=== PATIENT | female | born 2000 | race Caucasian/White ===

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

== ENCOUNTER 2022-02-04 10:01 | Emergency (ER) | payer OTHER ==
[~2022-02-04] VITALS: Ht 157.5 cm; Wt 59.4 kg
[~2022-02-04 10:01] MED LIST changes: +ACET-2166 PO
[2022-02-04 10:25] VITALS: BP 120/65
--- NOTE | 2022-02-04 10:32 | NUR ---
OUTSIDE ER LOBBY / BENCH
[2022-02-04] MEDS ORDERED: LIDOCAINE MPF 1% 5 ML ONE (10:39)
[2022-02-04] MEDS ORDERED: LIDOCAINE MPF 1% 10 MG/ML VIAL INJ ONE (10:45)
--- NOTE | 2022-02-04 10:59 | NUR ---
I&D PERFORED BY DR TIAN AT TRIAGE ROOM.
[2022-02-04] MEDS ORDERED: SULF-59 PO (11:14)
[2022-02-04] MEDS ORDERED: CEPH-588 PO (11:14)
--- NOTE | 2022-02-04 11:32 | NUR ---
Patient discharged with v/s stable. Written and verbal after care instructions given and explained. Patient alert, oriented and verbalized understanding of instructions. Ambulatory with steady gait. All questions addressed prior to discharge. ID band removed. Patient advised to follow up with PMD. Rx of Keflex, Bactrim given. Patient educated on indication of medication including possible reaction and side effects. Opportunity to ask questions provided and answered.
== END 2022-02-04 11:32 | disposition home or self-care (01) ==
LOC: MED 10:01
DX: L02.413 Cutaneous abscess of right upper limb (principal); L03.114 Cellulitis of left upper limb; F11.10 Opioid abuse, uncomplicated; Z79.899 Other long term (current) drug therapy
CPT/HCPCS: 10060; 99283; J2001

== ENCOUNTER 2022-02-04 19:56 | Emergency (ER) | payer OTHER ==
[~2022-02-04 19:56] MED LIST changes: +CEPH-588 PO; +SULF-59 PO
--- NOTE | 2022-02-04 20:21 | NUR ---
Called first time- no show in Lobby or outside.
--- NOTE | 2022-02-04 20:27 | NUR ---
Called second time- no show in Lobby or Outside.
--- NOTE | 2022-02-04 21:10 | NUR ---
PATIENT LEFT WITHOUT BEING SEEN BY DR. Fiore. NO FURTHER CARE PROVIDED FOR PATIENT.
== END 2022-02-04 21:10 | disposition left against medical advice (07) ==
LOC: MED 19:56
DX: Z53.21 Procedure and treatment not carried out due to patient leaving prior to being seen by health care provider (principal)

== ENCOUNTER 2022-02-05 | Emergency (ER) | payer OTHER ==
[~2022-02-05] VITALS: Ht 152.4 cm; Wt 59.0 kg
[2022-02-05 00:15] VITALS: BP 119/58
--- NOTE | 2022-02-05 00:18 | NUR ---
TO LOBBY A/W BED AMBULATORY
--- NOTE | 2022-02-05 02:42 | NUR ---
Patient taken to bed 4 via wheel chair.
[2022-02-05] MEDS ORDERED: cefTRIAXone 1,000 MG in LIDOCAINE MPF 1% 2.1 ML IM ONE (02:55)
[2022-02-05] MEDS ORDERED: SULFAMETH/TRIMETH DS 800/160MG 1 TAB PO ONE (02:55)
[2022-02-05] MEDS ORDERED: cefTRIAXone 1,000 MG VIAL ONE (03:17)
[2022-02-05] MEDS ORDERED: LIDOCAINE MPF 1% 5 ML ONE (03:18)
[2022-02-05] MEDS ORDERED: cephALEXin 500 MG CAP PO ONE (03:30)
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
== END 2022-02-05 03:36 | disposition home or self-care (01) ==
LOC: MED
DX: L03.114 Cellulitis of left upper limb (principal); L02.414 Cutaneous abscess of left upper limb; F19.10 Other psychoactive substance abuse, uncomplicated; Z79.899 Other long term (current) drug therapy
CPT/HCPCS: 99283; J0696; J2001

== ENCOUNTER 2022-02-23 20:04 | Emergency (ER) | payer OTHER ==
[~2022-02-23] VITALS: Ht 157.5 cm; Wt 67.1 kg
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
[2022-02-23 20:10] VITALS: BP_SYST 108; BP_SYST 116; BP_DIAS 65; BP_DIAS 84
--- NOTE | 2022-02-23 20:16 | NUR ---
Dr. Junior examining patient.
--- NOTE | 2022-02-23 20:41 | NUR ---
LENS GRINDER APPRENTICE AT BEDSIDE OBTAINING BLOOD SAMPLE
[2022-02-23 20:59] LABS: BASOPHILS % (AUTO) 0.5 % (0.0-2.0); EOSINOPHILS # (AUTO) 0.1 K/uL (0-0.4); HEMATOCRIT 37.1 % (36-48); HEMOGLOBIN 12.1 g/dL (12.0-16.0); LYMPHOCYTES # (AUTO) 2.7 K/uL (2.5-16.5); LYMPHOCYTES % (AUTO) 29.6 % (20.5-51.1); MEAN CORPUSCULAR HEMOGLOBIN 27 pg (27-31); MEAN CORPUSCULAR HGB CONC 33 g/dL (33-37); MEAN CORPUSCULAR VOLUME 81.6 fL (80-94); MONOCYTES # (AUTO) 0.7 K/uL (0.8-1.0); MONOCYTES % (AUTO) 8.2 % (1.7-9.3); NEUTROPHILS # (AUTO) 5.4 K/uL (1.8-7.7); NEUTROPHILS % (AUTO) 60.7 % (42.2-75.2); PLATELET COUNT (AUTO) 272 K/uL (140-450); RED BLOOD CELL COUNT(AUTO) 4.55 MIL/uL (4.20-5.40); WHITE BLOOD COUNT (AUTO) 8.9 K/uL (4.5-11.0)
--- NOTE | 2022-02-23 21:01 | NUR ---
pt provided with markus martinez. per dr.sin lundberg to give.
[2022-02-23] MEDS ORDERED: NACL 0.9% 1,000 ML IV ONE (21:10)
[2022-02-23 21:15] LABS: ALBUMIN 3.6 g/dL (3.4-5.0); ANION GAP 11.9 (8-16); ASPARTATE AMINOTRANSFERASE 34 U/L (15-37); CARBON DIOXIDE 28.6 mmol/L (21-32); CHLORIDE 107 mmol/L (98-107); CREATININE 0.8 mg/dL (0.6-1.3); GFR ARICAN-AMERICAN 118 mL/min (>90); GLUCOSE 81 mg/dL (74-106); POTASSIUM 3.5 mmol/L (3.5-5.1); SODIUM SERUM 144 mmol/L (136-145); TOTAL BILIRUBIN 0.9 mg/dL (0.0-1.0); UREA NITROGEN, BLOOD 16 mg/dL (7-18)
[2022-02-23 21:19] LABS: ACETAMINOPHEN < 0.5 ug/ml (10-30); SALICYLATE < 2.8 mg/dL (2.8-20.0)
--- NOTE | 2022-02-23 21:53 | NUR ---
XRAY AT BEDSIDE
[2022-02-24] MEDS ORDERED: NALO4SPR NS (00:04)
[2022-02-24 00:35] VITALS: BP 110/52
--- NOTE | 2022-02-24 00:35 | NUR ---
Patient discharged with v/s stable. Written and verbal after care instructions given and explained. Patient alert, oriented and verbalized understanding of instructions. Ambulatory with steady gait. All questions addressed prior to discharge. ID band removed. Patient advised to follow up with PMD. Rx of narcan given. Patient educated on indication of medication including possible reaction and side effects. Opportunity to ask questions provided and answered.
== END 2022-02-24 00:35 | disposition home or self-care (01) ==
LOC: MED 20:04
DX: T40.2X1A Poisoning by other opioids, accidental (unintentional), initial encounter (principal); F15.90 Other stimulant use, unspecified, uncomplicated; Y92.89 Other specified places as the place of occurrence of the external cause
CPT/HCPCS: 36415; 71045; 80053; 84702; 85025; 96360; 99284; G0480; G0482; J7030

== ENCOUNTER 2022-04-16 19:12 | Emergency (ER) | payer OTHER ==
[~2022-04-16] VITALS: Ht 160 cm; Wt 56.7 kg
[~2022-04-16 19:12] MED LIST changes: +NALO4SPR NS
[2022-04-16 19:16] VITALS: BP 102/57
--- NOTE | 2022-04-16 19:20 | NUR ---
PT KWASI MAURO TO CHAIR C
--- NOTE | 2022-04-16 19:20 | NUR ---
PT TO CHAIR C
--- NOTE | 2022-04-16 19:31 | NUR ---
PT WISHES TO WAIT IN THE LOBBY.
--- NOTE | 2022-04-16 19:32 | NUR ---
PT RETURNED TO CHAIR C
--- NOTE | 2022-04-16 20:36 | NUR ---
DR WATTS EXAMINING PT
[2022-04-16] MEDS ORDERED: ONDANSETRON 4 MG ODT PO ONE (20:40)
--- NOTE | 2022-04-16 21:46 | NUR ---
PT PROVIDED WITH FOOD AND DRINK PER REQUEST
[2022-04-16 22:28] LABS: BARBITURATE, URINE NEGATIVE ng/ml (NEG <=200); BENZODIAZEPINE, URINE NEGATIVE ng/mL (NEG <=200); CANNABINOID, URINE NEGATIVE ng/mL (NEG <=50); COCAINE, URINE NEGATIVE ng/mL (NEG <=300); OPIATE, URINE NEGATIVE ng/mL (NEG <=2000); PHENCYCLIDINE SCREEN,URINE NEGATIVE ng/mL (NEG <=25)
--- NOTE | 2022-04-16 23:00 | NUR ---
PT IS AWAKE AND ALERT, AMBULATORY. PT CALLED A FRIEND.
[2022-04-16 23:25] VITALS: BP 102/57
--- NOTE | 2022-04-16 23:25 | NUR ---
Patient discharged with v/s stable. Written and verbal after care instructions given and explained. Patient verbalized understanding. Ambulatory with steady gait. All questions addressed prior to discharge. Advised to follow up with PMD.
== END 2022-04-16 23:25 | disposition home or self-care (01) ==
LOC: MED 19:12
DX: F10.129 Alcohol abuse with intoxication, unspecified (principal); F15.90 Other stimulant use, unspecified, uncomplicated; Z79.899 Other long term (current) drug therapy
CPT/HCPCS: 36415; 80305; 81025; 99283; G0482

== ENCOUNTER 2022-07-30 08:20 | Emergency (ER) | payer OTHER ==
[~2022-07-30] VITALS: Ht 157.5 cm; Wt 60.8 kg
[~2022-07-30 08:20] MED LIST changes: +TRAM-748 PO; -TRAM50TA1 PO
[2022-07-30 08:34] VITALS: BP 102/67
--- NOTE | 2022-07-30 08:47 | NUR ---
PT AMBULATED TO ER BED 3
[2022-07-30] MEDS ORDERED: cefTRIAXone 250 MG in LIDOCAINE MPF 1% 0.9 ML IM ONE (09:05)
[2022-07-30] MEDS ORDERED: DOXYCYCLINE 100 MG CAP PO SCH (09:05)
[2022-07-30 09:10] LABS: BASOPHILS % (AUTO) 0.4 % (0.0-2.0); EOSINOPHILS # (AUTO) 0.2 K/uL (0-0.4); EOSINOPHILS % (AUTO) 2.7 % (0.0-4.0); HEMATOCRIT 36.1 % (36-48); HEMOGLOBIN 12.4 g/dL (12.0-16.0); LYMPHOCYTES # (AUTO) 2.2 K/uL (2.5-16.5); MEAN CORPUSCULAR HEMOGLOBIN 28 pg (27-31); MEAN CORPUSCULAR HGB CONC 34 g/dL (33-37); MONOCYTES # (AUTO) 0.7 K/uL (0.8-1.0); MONOCYTES % (AUTO) 8.2 % (1.7-9.3); NEUTROPHILS % (AUTO) 61.7 % (42.2-75.2); PLATELET COUNT (AUTO) 204 K/uL (140-450); RED BLOOD CELL COUNT(AUTO) 4.51 MIL/uL (4.20-5.40); RED CELL DISTRIBUTION WIDTH 14.2 % (11.6-13.7)
[2022-07-30 09:34] LABS: ALBUMIN 3.6 g/dL (3.4-5.0); ANION GAP 8.8 (8-16); CARBON DIOXIDE 31.1 mmol/L (21-32); CREATININE 0.9 mg/dL (0.6-1.3); POTASSIUM 3.9 mmol/L (3.5-5.1); TOTAL BILIRUBIN 0.6 mg/dL (0.0-1.0)
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
[2022-07-30] MEDS ORDERED: LIDOCAINE 1% 500 MG/ 50 ML VIAL INJ ONE (10:15)
[2022-07-30] MEDS ORDERED: LIDOCAINE MPF 1% 5 ML ONE ×2 (10:16→10:50)
[2022-07-30] MEDS ORDERED: cefTRIAXone 250 MG VIAL ONE (10:48)
[2022-07-30 10:53] LABS: APPEARANCE,URINE CLEAR (CLEAR); BILIRUBIN,URINE NEGATIVE (NEGATIVE); BLOOD, URINE NEGATIVE (NEGATIVE); COLOR,URINE YELLOW (YELLOW); LEUKOCYTE ESTERASE ,URINE NEGATIVE (NEGATIVE); NITRITE, URINE POSITIVE (NEGATIVE); UGLUCOSE NEGATIVE (NEGATIVE)
[2022-07-30 11:09] LABS: OTHER CASTS, URINE None Seen /LPF (None Seen); RBC,URINE 0-5 /HPF (0-5); WBC,URINE 0-5 /HPF (0-5)
[2022-07-30] MEDS ORDERED: DOXY-690 PO (11:32)
[2022-07-30] MEDS ORDERED: METR-435 PO (11:35)
--- NOTE | 2022-07-30 11:48 | NUR ---
Patient discharged with v/s stable. Written and verbal after care instructions given and explained. Patient alert, oriented and verbalized understanding of instructions. Ambulatory with steady gait. All questions addressed prior to discharge. ID band removed. Patient advised to follow up with PMD. Rx of Vibramycin and Metronidazole given. Patient educated on indication of medication including possible reaction and side effects. Opportunity to ask questions provided and answered.
[2022-07-30 11:49] VITALS: BP 101/46
[2022-07-30] MEDS ORDERED: NALO4SPR NS (11:50)
== END 2022-07-30 11:48 | disposition home or self-care (01) ==
LOC: MED 08:20
DX: L02.01 Cutaneous abscess of face (principal); F19.10 Other psychoactive substance abuse, uncomplicated; F17.200 Nicotine dependence, unspecified, uncomplicated; Z71.6 Tobacco abuse counseling
CPT/HCPCS: 10060; 36415; 80053; 81001; 81025; 85025; 87086; 87491; 96372; 99284; J0696; J2001

== ENCOUNTER 2022-08-13 08:18 | Emergency (ER) | payer OTHER ==
[~2022-08-13] VITALS: Ht 157.5 cm; Wt 65.8 kg
[~2022-08-13 08:18] MED LIST changes: +DOXY-690 PO; +METR-435 PO
[2022-08-13 08:33] VITALS: BP 114/53
--- NOTE | 2022-08-13 09:08 | NUR ---
22F presents to ED with c/o multiple abscess to right side of face x a few weeks. Pt reports pressure like sensation to right side of face, denies pain. Pt reports illicit use of fentanyl, and crystal meth via IV. Pt denies fevers, chills or n/v/d. Slight swelling noted to right side of face upon assessment.
[2022-08-13] MEDS ORDERED: LIDOCAINE 2% 100 MG/5 ML SYR IVP ONE (10:16)
[2022-08-13] MEDS ORDERED: LIDOCAINE 2% 1000 MG/50 ML VIAL INJ ONE (10:18)
--- NOTE | 2022-08-13 10:36 | NUR ---
Dr. Nam at bedside of I&D procedure.
[2022-08-13] MEDS ORDERED: SULF-59 PO (10:48)
[2022-08-13] MEDS: LIDOCAINE MPF 2% 100 MG/5 ML VIAL INJ ONE (11:05)
[2022-08-13 11:10] VITALS: BP 121/58
--- NOTE | 2022-08-13 11:10 | NUR ---
Patient discharged with v/s stable. Written and verbal after care instructions skin abscess and substance abuse disorder given and explained. Resources given for substance abuse. Patient alert, oriented and verbalized understanding of instructions. Ambulatory with steady gait. All questions addressed prior to discharge. ID band removed. Patient advised to follow up with PMD. Rx of Bactrim given. Patient educated on indication of medication including possible reaction and side effects. Opportunity to ask questions provided and answered.
== END 2022-08-13 11:10 | disposition home or self-care (01) ==
LOC: MED 08:18
DX: L02.01 Cutaneous abscess of face (principal); F15.10 Other stimulant abuse, uncomplicated; Z79.899 Other long term (current) drug therapy
CPT/HCPCS: 99283; J2001

== ENCOUNTER 2022-08-13 21:48 | Emergency (ER) | payer OTHER ==
[~2022-08-13] VITALS: Ht 157.5 cm; Wt 64.0 kg
[2022-08-13 22:21] VITALS: BP 123/69
--- NOTE | 2022-08-14 00:10 | NUR ---
SEEN AND EXAMINED BY SUKH
[2022-08-14 00:25] VITALS: BP 123/69
[2022-08-14] MEDS ORDERED: SULFAMETH/TRIMETH DS 800/160MG 1 TAB PO ONE (00:25)
[2022-08-14] MEDS ORDERED: IBUPROFEN 600 MG TAB PO ONE (00:25)
== END 2022-08-14 01:25 | disposition home or self-care (01) ==
LOC: MED 21:48
DX: L03.211 Cellulitis of face (principal); Z79.899 Other long term (current) drug therapy
CPT/HCPCS: 99284

== ENCOUNTER 2022-09-28 11:29 | Emergency (ER) | payer OTHER ==
[~2022-09-28] VITALS: Ht 157.5 cm; Wt 62.6 kg
[2022-09-28 11:35] VITALS: BP 116/61
--- NOTE | 2022-09-28 12:54 | NUR ---
ATTEMPTED TO BRING PT BACK, NOT FOUND IN LOBBY/OUTSIDE
--- NOTE | 2022-09-28 13:05 | NUR ---
2ND ATTEMPT TO BRING PT BACK, NOT FOUND IN LOBBY/OUTSIDE.
--- NOTE | 2022-09-28 13:20 | NUR ---
PATIENT LEFT WITHOUT BEING SEEN BY DR. ANDUJAR/ DAGO GONZALEZ. NO FURTHER CARE PROVIDED FOR PATIENT.
[2022-09-28] MEDS ORDERED: BACTO TP (15:30)
[2022-09-28] MEDS ORDERED: DOXY-690 PO (15:30)
[2022-09-28] MEDS ORDERED: METR-435 PO (15:30)
[2022-09-28] MEDS ORDERED: MICO45CR20 VG (16:11)
== END 2022-09-28 13:20 | disposition left against medical advice (07) ==
LOC: MED 11:29
DX: L02.01 Cutaneous abscess of face (principal); Z53.21 Procedure and treatment not carried out due to patient leaving prior to being seen by health care provider
CPT/HCPCS: 99281

== ENCOUNTER 2022-09-28 14:16 | Emergency (ER) | payer OTHER ==
[~2022-09-28] VITALS: Ht 154.9 cm; Wt 61.2 kg
[2022-09-28 14:24] VITALS: BP 111/82
[2022-09-28] MEDS ORDERED: cefTRIAXone 1,000 MG in LIDOCAINE MPF 1% 2.1 ML IM ONE (14:35)
--- NOTE | 2022-09-28 14:44 | NUR ---
ATTEMPTED TO BRING PT BACK, NOT FOUND IN LOBBY/OUTSIDE
--- NOTE | 2022-09-28 15:03 | NUR ---
PT AMB TO BED 9
--- NOTE | 2022-09-28 15:12 | NUR ---
ASSUMED PATIENT CARE, NURSING ASSESSMENT COMPLETED.
[2022-09-28] MEDS ORDERED: LIDOCAINE MPF 1% 5 ML ONE (15:19)
[2022-09-28] MEDS ORDERED: cefTRIAXone 1,000 MG VIAL ONE (15:19)
[2022-09-28] MEDS ORDERED: BACTO TP (15:30)
[2022-09-28] MEDS ORDERED: METR-435 PO (15:30)
[2022-09-28] MEDS ORDERED: DOXY-690 PO (15:30)
[2022-09-28 15:38] LABS: APPEARANCE,URINE CLEAR (CLEAR); BILIRUBIN,URINE NEGATIVE (NEGATIVE); BLOOD, URINE NEGATIVE (NEGATIVE); COLOR,URINE YELLOW (YELLOW); LEUKOCYTE ESTERASE ,URINE NEGATIVE (NEGATIVE); NITRITE, URINE POSITIVE (NEGATIVE); UGLUCOSE NEGATIVE (NEGATIVE)
[2022-09-28 15:59] VITALS: BP 121/67
[2022-09-28 15:59] LABS: RBC,URINE NONE SEEN /HPF (0-5); WBC,URINE 0-5 /HPF (0-5)
[2022-09-28 16:00] LABS: TRICHOMONAS,URINE None Seen /HPF (None Seen); YEAST,URINE Moderate /HPF (None Seen)
--- NOTE | 2022-09-28 16:03 | NUR ---
Patient discharged with v/s stable. Written and verbal after care instructions given and explained. Patient alert, oriented and verbalized understanding of instructions. Ambulatory with steady gait. All questions addressed prior to discharge. ID band removed. Patient advised to follow up with PMD. Rx of MUPIROCIN, VIBRAMYCIN, METRONIDAZOLE given. Patient educated on indication of medication including possible reaction and side effects. Opportunity to ask questions provided and answered.
--- NOTE | 2022-09-28 16:07 | NUR ---
ALCOHOL AND DRUG CESSATION RESOURCES PROVIDED TO PATIENT.
[2022-09-28] MEDS ORDERED: MICO45CR20 VG (16:11)
== END 2022-09-28 16:03 | disposition home or self-care (01) ==
LOC: MED 14:16
DX: N76.0 Acute vaginitis (principal); B96.89 Other specified bacterial agents as the cause of diseases classified elsewhere; B37.31 Acute candidiasis of vulva and vagina; L02.01 Cutaneous abscess of face; Z79.899 Other long term (current) drug therapy
CPT/HCPCS: 81001; 81025; 86592; 86703; 87086; 87491; 96372; 99283; J0696; J2001

== ENCOUNTER 2022-10-16 09:02 | Emergency (ER) | payer OTHER ==
[~2022-10-16] VITALS: Ht 157.5 cm; Wt 63.5 kg
[~2022-10-16 09:02] MED LIST changes: +BACTO TP; +MICO45CR20 VG
[2022-10-16 09:09] VITALS: BP 116/71
[2022-10-16] MEDS ORDERED: PENICILLIN G BENZATHINE L-A 1.2 MU/2 ML SYR IM ONE (09:50)
[2022-10-16] MEDS ORDERED: AMOX1TAB8 PO (11:26)
--- NOTE | 2022-10-16 11:32 | NUR ---
DRUG RESOURCE PACKET PROVIDED BY ANILA MARTINEZ
[2022-10-16 11:33] VITALS: BP 116/71
[2022-10-17 09:07] LABS: HEPATITIS A ANTIBODY IGM Negative (Negative); HEPATITIS B CORE AB TOTAL Negative (Negative); HEPATITIS B SURFACE ANTIBODY Non Reactive (.); HEPATITIS B SURFACE ANTIGEN Negative (Negative)
== END 2022-10-16 11:34 | disposition home or self-care (01) ==
LOC: MED 09:02
DX: K04.7 Periapical abscess without sinus (principal); A53.9 Syphilis, unspecified; Z79.899 Other long term (current) drug therapy
CPT/HCPCS: 36415; 86704; 86706; 86708; 86709; 86803; 87340; 96372; 99283; J0561

== ENCOUNTER 2022-11-10 03:20 | Emergency (ER) | payer OTHER ==
[~2022-11-10] VITALS: Ht 157.5 cm; Wt 62.6 kg
[~2022-11-10 03:20] MED LIST changes: +AMOX1TAB8 PO
[2022-11-10 03:40] VITALS: BP 124/70
--- NOTE | 2022-11-10 03:40 | NUR ---
PT WENT TO BED 3
--- NOTE | 2022-11-10 03:50 | NUR ---
c/o left upper dental pain and abscess x 1 month. per pt, c/o sore throat. denies pmhx, denies allergies.
--- NOTE | 2022-11-10 04:03 | NUR ---
DR REID AT BEDSIDE
[2022-11-10] MEDS ORDERED: KETOROLAC 60 MG/2 ML VIAL IM ONE (04:10)
[2022-11-10] MEDS ORDERED: AMOX-1230 PO (04:17)
[2022-11-10] MEDS ORDERED: IBUP-2213 PO (04:17)
[2022-11-10 04:47] VITALS: BP 124/70
--- NOTE | 2022-11-10 04:50 | NUR ---
pt refused the med. notified.
--- NOTE | 2022-11-10 05:06 | NUR ---
Patient discharged with v/s stable. Written and verbal after care instructions given and explained. Patient alert, oriented and verbalized understanding of instructions. Ambulatory with steady gait. All questions addressed prior to discharge. ID band removed. Patient advised to follow up with PMD. Rx of amoxillin and tylenol given. Patient educated on indication of medication including possible reaction and side effects. Opportunity to ask questions provided and answered.
== END 2022-11-10 05:06 | disposition home or self-care (01) ==
LOC: MED 03:20
DX: K04.7 Periapical abscess without sinus (principal); Z79.899 Other long term (current) drug therapy
CPT/HCPCS: 99283; J1885

== ENCOUNTER 2023-01-19 13:03 | Emergency (ER) | payer MEDICAID, OTHER ==
[~2023-01-19] VITALS: Ht 162.6 cm; Wt 81.6 kg
[~2023-01-19 13:03] MED LIST changes: +AMOX-1230 PO; +IBUP-2213 PO
[2023-01-19 13:30] VITALS: BP 149/80; PULSE 90; RESP 18; TEMP 98.1; O2SAT 98
[2023-01-19] MEDS ORDERED: LIDOCAINE MPF 1% 10 MG/ML VIAL INJ ONE (14:00)
--- NOTE | 2023-01-19 15:01 | NUR ---
22 yo/m w c/o R pointer finger abscess x3 days s/p cutting self w glass, site is swollen, purple/yellow fluid filled 10/10 pressure pain. no fevers, chills, n/v/d. pmh: denies allergies: denies
--- NOTE | 2023-01-19 15:06 | NUR ---
pt reports she a MD 3days ago and received tdap.
--- NOTE | 2023-01-19 15:34 | NUR ---
lissette ortiz [facility] for pt care
[2023-01-19] MEDS ORDERED: NALO4SPR NS (15:41)
[2023-01-19 16:08] VITALS: BP 131/84; PULSE 85; RESP 18; TEMP 98.1; O2SAT 99
== END 2023-01-19 16:08 | disposition home or self-care (01) ==
LOC: MED 13:03
DX: L02.511 Cutaneous abscess of right hand (principal); F11.90 Opioid use, unspecified, uncomplicated; Z79.899 Other long term (current) drug therapy
CPT/HCPCS: 26010; 73140; 99283; J2001

== ENCOUNTER 2023-02-04 00:55 | Emergency (ER) | payer MEDICAID ==
[~2023-02-04] VITALS: Ht 157.5 cm; Wt 54.4 kg
[2023-02-04 01:07] VITALS: BP 101/66; PULSE 108; RESP 16; TEMP 98.1; O2SAT 100
--- NOTE | 2023-02-04 01:13 | NUR ---
TO LOBBY FOLLOWING TRIAGE
--- NOTE | 2023-02-04 02:40 | NUR ---
CALLED PT TO BRING TO BED. NO ANSWER. PT LWBS
== END 2023-02-04 02:40 | disposition left against medical advice (07) ==
LOC: MED 00:55
DX: M79.644 Pain in right finger(s) (principal); Z53.21 Procedure and treatment not carried out due to patient leaving prior to being seen by health care provider
CPT/HCPCS: 99281

== ENCOUNTER 2023-03-04 19:56 | Emergency (ER) | payer MEDICAID ==
[~2023-03-04] VITALS: Ht 157.5 cm; Wt 54.4 kg
[2023-03-04 20:37] VITALS: BP 116/66; PULSE 83; RESP 16; TEMP 96.8; O2SAT 100
== END 2023-03-04 22:40 | disposition left against medical advice (07) ==
LOC: MED 19:56
DX: O21.8 Other vomiting complicating pregnancy (principal); O99.350 Diseases of the nervous system complicating pregnancy, unspecified trimester; R51.9 Headache, unspecified; Z53.21 Procedure and treatment not carried out due to patient leaving prior to being seen by health care provider; Z3A.00 Weeks of gestation of pregnancy not specified
CPT/HCPCS: 81025; 99281

== ENCOUNTER 2023-03-05 09:40 | Emergency (ER) | payer MEDICAID ==
[~2023-03-05] VITALS: Ht 157.5 cm; Wt 68.0 kg
[2023-03-05 10:00] VITALS: BP 108/65; PULSE 85; RESP 20; TEMP 98.1; O2SAT 100
[2023-03-05 13:36] LABS: APPEARANCE,URINE CLEAR (CLEAR); BILIRUBIN,URINE NEGATIVE (NEGATIVE); BLOOD, URINE NEGATIVE (NEGATIVE); COLOR,URINE YELLOW (YELLOW); LEUKOCYTE ESTERASE ,URINE NEGATIVE (NEGATIVE); NITRITE, URINE NEGATIVE (NEGATIVE); PROTEIN,URINE NEGATIVE (NEGATIVE); UGLUCOSE NEGATIVE (NEGATIVE); UROBILINOGEN,URINE 0.2 EU/dL (0.2 - 1)
== END 2023-03-05 11:37 | disposition left against medical advice (07) ==
LOC: MED 09:40
DX: R11.2 Nausea with vomiting, unspecified (principal); N89.8 Other specified noninflammatory disorders of vagina; R42 Dizziness and giddiness; Z53.21 Procedure and treatment not carried out due to patient leaving prior to being seen by health care provider
CPT/HCPCS: 81003; 81025; 87491; 99281; 99283

== ENCOUNTER 2023-04-06 08:55 | Emergency (ER) | payer MEDICAID ==
[~2023-04-06] VITALS: Ht 157.5 cm; Wt 68.0 kg
[2023-04-06 09:03] VITALS: BP 83/65; PULSE 85; RESP 18; TEMP 97.4; O2SAT 100
[2023-04-06 13:49] VITALS: BP 83/65; PULSE 85; RESP 18; TEMP 97.4; O2SAT 100
[2023-04-07] MEDS ORDERED: CEPH-588 PO (01:12)
[2023-04-07] MEDS ORDERED: ACET-10509 PO (01:12)
== END 2023-04-06 13:49 | disposition left against medical advice (07) ==
LOC: MED 08:55
DX: H02.846 Edema of left eye, unspecified eyelid (principal); Z53.21 Procedure and treatment not carried out due to patient leaving prior to being seen by health care provider
CPT/HCPCS: 99281

== ENCOUNTER 2023-04-06 22:26 | Emergency (ER) | payer MEDICAID ==
[~2023-04-06] VITALS: Ht 157.5 cm; Wt 63.5 kg
[2023-04-06 23:10] VITALS: BP 132/70; PULSE 96; RESP 16; TEMP 97.9; O2SAT 99
[2023-04-07] MEDS ORDERED: CEPH-588 PO (01:12)
[2023-04-07] MEDS ORDERED: ACET-10509 PO (01:12)
== END 2023-04-07 01:20 | disposition home or self-care (01) ==
LOC: MED 22:26
DX: J34.0 Abscess, furuncle and carbuncle of nose (principal); Z79.899 Other long term (current) drug therapy
CPT/HCPCS: 81025; 99283

== ENCOUNTER 2023-05-15 19:40 | Emergency (ER) | payer MEDICAID ==
[~2023-05-15] VITALS: Ht 157.5 cm; Wt 54.4 kg
[~2023-05-15 19:40] MED LIST changes: +ACET-10509 PO
[2023-05-15 20:00] VITALS: BP 102/54; PULSE 82; RESP 17; TEMP 97.8; O2SAT 98
[2023-05-15 20:34] LABS: APPEARANCE,URINE CLEAR (CLEAR); BILIRUBIN,URINE NEGATIVE (NEGATIVE); BLOOD, URINE NEGATIVE (NEGATIVE); COLOR,URINE YELLOW (YELLOW); LEUKOCYTE ESTERASE ,URINE NEGATIVE (NEGATIVE); NITRITE, URINE NEGATIVE (NEGATIVE); PROTEIN,URINE NEGATIVE (NEGATIVE); UGLUCOSE NEGATIVE (NEGATIVE); UROBILINOGEN,URINE 0.2 EU/dL (0.2 - 1)
[2023-05-15 21:02] LABS: ALBUMIN 3.1 g/dL (3.4-5.0); ANION GAP 9.6 (8-16); CALCIUM 8.3 mg/dL (8.5-10.1); CREATININE 0.7 mg/dL (0.6-1.3); POTASSIUM 3.6 mmol/L (3.5-5.1); TOTAL BILIRUBIN 0.5 mg/dL (0.0-1.0); TOTAL PROTEIN, SERUM 6.9 g/dL (6.4-8.2)
[2023-05-15 21:59] LABS: BASOPHILS % (AUTO) 0.2 % (0.0-2.0); EOSINOPHILS # (AUTO) 0.1 K/uL (0-0.4); EOSINOPHILS % (AUTO) 1.8 % (0.0-4.0); HEMATOCRIT 34.9 % (36-48); HEMOGLOBIN 11.7 g/dL (12.0-16.0); LYMPHOCYTES # (AUTO) 2.3 K/uL (2.5-16.5); LYMPHOCYTES % (AUTO) 28.1 % (20.5-51.1); MEAN CORPUSCULAR HEMOGLOBIN 27 pg (27-31); MEAN CORPUSCULAR HGB CONC 33 g/dL (33-37); MEAN CORPUSCULAR VOLUME 81.3 fL (80-94); MONOCYTES # (AUTO) 0.5 K/uL (0.8-1.0); MONOCYTES % (AUTO) 6.7 % (1.7-9.3); NEUTROPHILS # (AUTO) 5.1 K/uL (1.8-7.7); NEUTROPHILS % (AUTO) 63.2 % (42.2-75.2); PLATELET COUNT (AUTO) 234 K/uL (140-450); RED CELL DISTRIBUTION WIDTH 15.6 % (11.6-13.7)
== END 2023-05-15 22:40 | disposition left against medical advice (07) ==
LOC: MED 19:40
DX: Z34.92 Encounter for supervision of normal pregnancy, unspecified, second trimester (principal); Z36.89 Encounter for other specified antenatal screening; Z53.21 Procedure and treatment not carried out due to patient leaving prior to being seen by health care provider
CPT/HCPCS: 36415; 80053; 81003; 81025; 84702; 85025; 86886; 86900; 86901; 87491; 99281

== ENCOUNTER 2023-06-19 16:55 | Observation (INO) | payer MEDICAID ==
[~2023-06-19] VITALS: Ht 157.5 cm; Wt 68.0 kg
[2023-06-19 17:15] VITALS: BP 114/61; PULSE 80; RESP 19; TEMP 98
[2023-06-19 18:56] LABS: APPEARANCE,URINE CLEAR (CLEAR); BILIRUBIN,URINE NEGATIVE (NEGATIVE); BLOOD, URINE NEGATIVE (NEGATIVE); COLOR,URINE YELLOW (YELLOW); LEUKOCYTE ESTERASE ,URINE NEGATIVE (NEGATIVE); NITRITE, URINE POSITIVE (NEGATIVE); PROTEIN,URINE NEGATIVE (NEGATIVE); UGLUCOSE NEGATIVE (NEGATIVE)
[2023-06-19 19:10] LABS: AMPHETAMINE, URINE POSITIVE ng/ml (NEG <=1000); BARBITURATE, URINE NEGATIVE ng/ml (NEG <=200); BENZODIAZEPINE, URINE NEGATIVE ng/mL (NEG <=200); CANNABINOID, URINE NEGATIVE ng/mL (NEG <=50); COCAINE, URINE POSITIVE ng/mL (NEG <=300); OPIATE, URINE POSITIVE ng/mL (NEG <=2000); PHENCYCLIDINE SCREEN,URINE NEGATIVE ng/mL (NEG <=25)
[2023-06-19 19:12] LABS: BACTERIA,URINE FEW /HPF (None Seen); RBC,URINE 0-5 /HPF (0-5)
[2023-06-19 19:13] LABS: SQUAMOUS EPITHELIAL CELL,UR 4-10 (MOD) /LPF (0-3 (FEW))
[2023-06-19] MEDS ORDERED: PENICILLIN G BENZATHINE L-A 1.2 MU/2 ML SYR IM ONE (20:00)
== END 2023-06-19 21:49 | disposition home or self-care (01) ==
LOC: MLD 16:55
PROVIDERS: ADMIT Obstetrics & Gynecology; ATTEND Obstetrics & Gynecology
DX: O36.8120 Decreased fetal movements, second trimester, not applicable or unspecified (principal); Z3A.22 22 weeks gestation of pregnancy
CPT/HCPCS: 76805; 80305; 81001; 87086; 96372; G0378; G0379; J0561; Q0092

== ENCOUNTER 2023-09-28 11:05 | Emergency (ER) | payer MEDICAID ==
[~2023-09-28] VITALS: Ht 157.5 cm; Wt 73.9 kg
[2023-09-28 11:38] VITALS: BP 127/74; PULSE 78; RESP 18; TEMP 97.7; O2SAT 100
[2023-09-28 12:31] LABS: BILIRUBIN,URINE 1+ (NEGATIVE); BLOOD, URINE NEGATIVE (NEGATIVE); COLOR,URINE YELLOW (YELLOW); LEUKOCYTE ESTERASE ,URINE 2+ (NEGATIVE); NITRITE, URINE POSITIVE (NEGATIVE); PROTEIN,URINE TRACE (NEGATIVE); UGLUCOSE NEGATIVE (NEGATIVE)
[2023-09-28 12:32] LABS: APPEARANCE,URINE HAZY (CLEAR)
[2023-09-28 12:37] LABS: ICTOTEST NEGATIVE (NEGATIVE)
[2023-09-28 12:38] LABS: BACTERIA,URINE 1+ /HPF (None Seen); RBC,URINE 0-5 /HPF (0-5); WBC,URINE TOO MANY TO COUNT /HPF (0-5)
[2023-09-28 12:39] LABS: SQUAMOUS EPITHELIAL CELL,UR 0-3 (FEW) /LPF (0-3 (FEW))
[2023-09-28] MEDS ORDERED: CEPH-588 PO (13:00)
[2023-09-28] MEDS ORDERED: ACET-10509 PO (13:00)
[2023-09-28] MEDS: PENICILLIN G BENZATHINE L-A 1.2 MU/2 ML SYR IM ONE (13:28)
[2023-09-28 13:50] VITALS: BP 127/74; PULSE 74; RESP 19; TEMP 97.7; O2SAT 100
[2023-09-28 14:36] LABS: HIV RAPID SCREEN NON-REACTIVE (NON REACTIV)
[2023-09-29 16:03] LABS: RAPID PLASMA REAGIN WEAKLY REACTIVE (Non Reactiv)
[2023-09-30] MEDS ORDERED: NITR100C7 PO (11:44)
== END 2023-09-28 13:50 | disposition home or self-care (01) ==
LOC: MED 11:05
DX: O26.893 Other specified pregnancy related conditions, third trimester (principal); M79.671 Pain in right foot; O98.313 Other infections with a predominantly sexual mode of transmission complicating pregnancy, third trimester; Z11.3 Encounter for screening for infections with a predominantly sexual mode of transmission; Z3A.30 30 weeks gestation of pregnancy; Z98.890 Other specified postprocedural states; Z79.899 Other long term (current) drug therapy
CPT/HCPCS: 36415; 81001; 81025; 86592; 86703; 86780; 87086; 87491; 87529; 96372; 99284; J0561

== ENCOUNTER 2023-10-13 21:50 | Inpatient (IN) | payer MEDICAID ==
[~2023-10-13] VITALS: Ht 157.5 cm; Wt 72.6 kg
[~2023-10-13 21:50] MED LIST changes: +NITR100C7 PO
[2023-10-13 22:18] VITALS: BP 124/74; PULSE 106; RESP 20; TEMP 99.7
[2023-10-13 23:53] LABS: BASOPHILS % (AUTO) 0.2 % (0.0-2.0); EOSINOPHILS % (AUTO) 0.1 % (0.0-4.0); HEMATOCRIT 33.5 % (36-48); HEMOGLOBIN 11.2 g/dL (12.0-16.0); LYMPHOCYTES # (AUTO) 1.1 K/uL (2.5-16.5); LYMPHOCYTES % (AUTO) 10.7 % (20.5-51.1); MEAN CORPUSCULAR HEMOGLOBIN 25 pg (27-31); MEAN CORPUSCULAR HGB CONC 33 g/dL (33-37); MEAN CORPUSCULAR VOLUME 74.9 fL (80-94); MONOCYTES # (AUTO) 0.9 K/uL (0.8-1.0); MONOCYTES % (AUTO) 9.2 % (1.7-9.3); NEUTROPHILS # (AUTO) 8.2 K/uL (1.8-7.7); NEUTROPHILS % (AUTO) 79.8 % (42.2-75.2); PLATELET COUNT (AUTO) 207 K/uL (140-450); RED BLOOD CELL COUNT(AUTO) 4.48 MIL/uL (4.20-5.40); RED CELL DISTRIBUTION WIDTH 15.3 % (11.6-13.7); WHITE BLOOD COUNT (AUTO) 10.2 K/uL (4.8-10.8)
[2023-10-13] MEDS ORDERED: cefTRIAXone 1,000 MG VIAL ONE (23:54)
[2023-10-13] MEDS: NACL 0.9% 1,000 ML IV ONE (23:58)
[2023-10-14] LABS: APPEARANCE,URINE CLEAR (CLEAR); BILIRUBIN,URINE NEGATIVE (NEGATIVE); BLOOD, URINE TRACE-I (NEGATIVE); COLOR,URINE YELLOW (YELLOW); LEUKOCYTE ESTERASE ,URINE 2+ (NEGATIVE); NITRITE, URINE POSITIVE (NEGATIVE); PH,URINE 7.5 (5.0-9.0); PROTEIN,URINE TRACE (NEGATIVE); UGLUCOSE NEGATIVE (NEGATIVE)
[2023-10-14 00:02] LABS: BACTERIA,URINE >30 (MANY) /HPF (None Seen); RBC,URINE 0-5 /HPF (0-5); WBC,URINE TOO MANY TO COUNT /HPF (0-5)
[2023-10-14 00:03] LABS: MUCUS,URINE 1+ /LPF (None Seen); SQUAMOUS EPITHELIAL CELL,UR 0-3 (FEW) /LPF (0-3 (FEW))
[2023-10-14 00:12] LABS: ALBUMIN 2.2 g/dL (3.4-5.0); ANION GAP 12.8 (8-16); CARBON DIOXIDE 24.9 mmol/L (21-32); CREATININE 0.9 mg/dL (0.6-1.3); POTASSIUM 3.7 mmol/L (3.5-5.1); TOTAL BILIRUBIN 0.6 mg/dL (0.0-1.0)
[2023-10-14] MEDS: NACL 0.9% 1,000 ML IV SCH (00:29)
[2023-10-14] MEDS: ACETAMINOPHEN EXTRA STRENGTH 500 MG TAB PO ONE (02:59)
[2023-10-14] MEDS: MORPHINE SULFATE 4 MG/ML SYR ONE (03:43)
[2023-10-14] MEDS: MORPHINE SULFATE 10 MG/ML VIAL ONE (03:51)
[2023-10-14] MEDS ORDERED: LACTATED RINGERS 1,000 ML IV SCH ×2 (04:05→05:30)
[2023-10-14] MEDS ORDERED: METHYLERGONOVINE 0.2 MG/ML AMP IM PRN ×2 (04:05→06:00)
[2023-10-14] MEDS ORDERED: CARBOPROST 250 MCG/ML AMP IM PRN (04:05)
[2023-10-14] MEDS ORDERED: ceFAZolin 2,000 MG VIAL ONE (04:11)
[2023-10-14] MEDS: CITRIC ACID/SODIUM CITRATE 30 ML UDC PO ONE (04:48)
[2023-10-14] MEDS ORDERED: diphenhydrAMINE 50 MG/ML VIAL ONE (04:49)
[2023-10-14] MEDS: METOCLOPRAMIDE 10 MG/2 ML INJ VIAL ONE (04:49)
[2023-10-14] MEDS ORDERED: METOCLOPRAMIDE 10 MG/2 ML INJ VIAL IVP ONE (04:55)
[2023-10-14 04:56] VITALS: BP 123/77; PULSE 100; RESP 22
[2023-10-14] MEDS ORDERED: MORPHINE PRES FREE 10 MG/10 ML AMP IV ONE (04:56)
[2023-10-14] MEDS: MORPHINE SULFATE 10 MG/ML VIAL IVP SCH (04:56)
[2023-10-14] MEDS ORDERED: DEXAMETHASONE 4 MG/ML VIAL ONE (04:57)
[2023-10-14] MEDS ORDERED: KETOROLAC 30 MG/ML VIAL ONE (04:57)
[2023-10-14] MEDS ORDERED: ONDANSETRON 4 MG/2 ML VIAL ONE (04:57)
[2023-10-14] MEDS ORDERED: HYDROmorphone 1 MG/ML AMP IVP PRN (05:30)
[2023-10-14] MEDS ORDERED: BLOOD GLUCOSE MONITORING 1 DEV DEV FS ONE (05:30)
[2023-10-14] MEDS ORDERED: ONDANSETRON 4 MG/2 ML VIAL IVP PRN (05:30)
[2023-10-14 05:58] LABS: HIV RAPID SCREEN NON-REACTIVE (NON REACTIV)
[2023-10-14] MEDS ORDERED: KETOROLAC 30 MG/ML VIAL IVP PRN (06:00)
[2023-10-14] MEDS ORDERED: bisacodyL 5 MG TABEC PO PRN (06:00)
[2023-10-14] MEDS ORDERED: MEASLES, MUMPS, AND RUBELLA 1 VIAL SQVAC ONE (06:00)
[2023-10-14 06:01] LABS: INR 0.91 (0.8-1.2); PARTIAL THROMBOPLASTIN TIME 31.9 secs (22-35.6); PROTHROMBIN TIME 9.6 secs (10.8-13.4)
[2023-10-14 06:14] LABS: BARBITURATE, URINE NEGATIVE ng/ml (NEG <=200); BENZODIAZEPINE, URINE NEGATIVE ng/mL (NEG <=200); COCAINE, URINE POSITIVE ng/mL (NEG <=300)
[2023-10-14 06:15] LABS: AMPHETAMINE, URINE POSITIVE ng/ml (NEG <=1000); CANNABINOID, URINE NEGATIVE ng/mL (NEG <=50); OPIATE, URINE NEGATIVE ng/mL (NEG <=2000); PHENCYCLIDINE SCREEN,URINE NEGATIVE ng/mL (NEG <=25)
[2023-10-14] MEDS: OXYTOCIN/0.9 % SODIUM CHLORIDE 500 ML IV ONE (06:18)
[2023-10-14] MEDS ORDERED: SIMETHICONE 80 MG TAB.CHEW PO PRN (08:00)
[2023-10-14] MEDS: OXYTOCIN/0.9 % SODIUM CHLORIDE 500 ML IV SCH (12:36)
[2023-10-14 15:10] LABS: RAPID PLASMA REAGIN WEAKLY REACTIVE (Non Reactiv)
[2023-10-14] MEDS: KETOROLAC 30 MG/ML VIAL IVP PRN (16:21)
[2023-10-15] MEDS: oxyCODONE/APAP 5/325 MG 1 TAB TAB PO PRN (03:03)
[2023-10-15 06:08] LABS: BASOPHILS % (AUTO) 0.3 % (0.0-2.0); EOSINOPHILS # (AUTO) 0.1 K/uL (0-0.4); EOSINOPHILS % (AUTO) 0.4 % (0.0-4.0); HEMATOCRIT 32.9 % (36-48); HEMOGLOBIN 10.5 g/dL (12.0-16.0); MEAN CORPUSCULAR HEMOGLOBIN 25 pg (27-31); MEAN CORPUSCULAR HGB CONC 32 g/dL (33-37); MEAN CORPUSCULAR VOLUME 77.3 fL (80-94); MONOCYTES # (AUTO) 1.7 K/uL (0.8-1.0); MONOCYTES % (AUTO) 12.1 % (1.7-9.3); NEUTROPHILS # (AUTO) 8.9 K/uL (1.8-7.7); NEUTROPHILS % (AUTO) 65.2 % (42.2-75.2); PLATELET COUNT (AUTO) 235 K/uL (140-450); RED BLOOD CELL COUNT(AUTO) 4.26 MIL/uL (4.20-5.40); RED CELL DISTRIBUTION WIDTH 15.3 % (11.6-13.7); WHITE BLOOD COUNT (AUTO) 13.7 K/uL (4.8-10.8)
[2023-10-15] MEDS ORDERED: MORPHINE SULFATE 10 MG/ML VIAL IVP PRN (07:44)
[2023-10-16 06:08] LABS: HEPATITIS B SURFACE ANTIGEN Negative (Negative)
[2023-10-16 22:19] LABS: TREPONEMA PALLIDUM AB POSITIVE (NEGATIVE)
== END 2023-10-15 13:22 | disposition home or self-care (01) | DRG 540 ==
LOC: MLD 21:50 → OBSVTOIN 10-14 04:06 → MFCC 10-14 07:53
PROVIDERS: ADMIT Obstetrics & Gynecology; ATTEND Obstetrics & Gynecology
PROC: 10D00Z1 Extraction of Products of Conception, Low, Open Approach (ICD-10-PCS; principal; 2023-10-15)
DX: O32.1XX0 Maternal care for breech presentation, not applicable or unspecified (principal); O99.324 Drug use complicating childbirth; O34.211 Maternal care for low transverse scar from previous cesarean delivery; O76 Abnormality in fetal heart rate and rhythm complicating labor and delivery; F12.90 Cannabis use, unspecified, uncomplicated; Z20.822 Contact with and (suspected) exposure to COVID-19; F11.90 Opioid use, unspecified, uncomplicated; Z3A.37 37 weeks gestation of pregnancy; Z37.0 Single live birth
CPT/HCPCS: G0378 ×3; 36415; 80053; 80305; 81001; 85025; 85610; 85730; 86592; 86762; 86886; 86900; 86901; 87086; 87186; 87340; J0696; J1100; J1200; J1885; J2270; J2405; J2590; J2765; J7060; J7120

== ENCOUNTER 2023-10-24 22:11 | Emergency (ER) | payer MEDICAID ==
[~2023-10-24] VITALS: Ht 157.5 cm; Wt 68.0 kg
[2023-10-24 22:25] VITALS: BP 136/68; PULSE 106; RESP 18; TEMP 97.9; O2SAT 97
== END 2023-10-24 23:09 | disposition home or self-care (01) ==
LOC: MED 22:11
DX: O86.00 Infection of obstetric surgical wound, unspecified (principal); O99.325 Drug use complicating the puerperium; F15.90 Other stimulant use, unspecified, uncomplicated; Z79.899 Other long term (current) drug therapy
CPT/HCPCS: 99281

== ENCOUNTER 2023-10-25 22:19 | Emergency (ER) | payer MEDICAID ==
[~2023-10-25] VITALS: Ht 157.5 cm; Wt 68.0 kg
[2023-10-25 23:07] VITALS: BP 120/59; PULSE 106; RESP 18; TEMP 97.4; O2SAT 99
[2023-10-25 23:49] LABS: BASOPHILS # (AUTO) 0.1 K/uL (0.00-0.22); BASOPHILS % (AUTO) 0.6 % (0.0-2.0); EOSINOPHILS # (AUTO) 0.4 K/uL (0-0.4); EOSINOPHILS % (AUTO) 4.8 % (0.0-4.0); HEMATOCRIT 32.8 % (36-48); HEMOGLOBIN 10.8 g/dL (12.0-16.0); LYMPHOCYTES # (AUTO) 2.3 K/uL (2.5-16.5); MEAN CORPUSCULAR HEMOGLOBIN 25 pg (27-31); MEAN CORPUSCULAR HGB CONC 33 g/dL (33-37); MEAN CORPUSCULAR VOLUME 74.9 fL (80-94); MONOCYTES # (AUTO) 0.5 K/uL (0.8-1.0); MONOCYTES % (AUTO) 6.1 % (1.7-9.3); NEUTROPHILS # (AUTO) 5.2 K/uL (1.8-7.7); NEUTROPHILS % (AUTO) 61.5 % (42.2-75.2); PLATELET COUNT (AUTO) 396 K/uL (140-450); RED BLOOD CELL COUNT(AUTO) 4.38 MIL/uL (4.20-5.40); WHITE BLOOD COUNT (AUTO) 8.5 K/uL (4.8-10.8)
[2023-10-26 00:07] LABS: ANION GAP 7.6 (8-16); CALCIUM 8.6 mg/dL (8.5-10.1); CARBON DIOXIDE 33.5 mmol/L (21-32); CREATININE 0.8 mg/dL (0.6-1.3); POTASSIUM 4.1 mmol/L (3.5-5.1)
[2023-10-26 00:17] LABS: LACTIC ACID 1.2 mmol/L (0.4-2.0)
[2023-10-26] MEDS: HYDROcodone/APAP 5/325 MG 1 TAB TAB PO ONE (02:32)
== END 2023-10-26 03:58 | disposition home or self-care (01) ==
LOC: MED 22:19
DX: R10.2 Pelvic and perineal pain (principal); D50.9 Iron deficiency anemia, unspecified; Z48.02 Encounter for removal of sutures; Z79.899 Other long term (current) drug therapy
CPT/HCPCS: 36415; 80048; 83605; 85025; 85651; 86140; 99283

== ENCOUNTER 2024-03-04 10:37 | Emergency (ER) | payer MEDICAID ==
[~2024-03-04] VITALS: Ht 154.9 cm; Wt 64.1 kg
[2024-03-04 10:53] VITALS: BP 110/60; PULSE 69; RESP 18; TEMP 97.9; O2SAT 100
[2024-03-04 12:03] LABS: HIV RAPID SCREEN NON-REACTIVE (NON REACTIV)
[2024-03-04 12:16] LABS: RAPID PLASMA REAGIN REACTIVE (Non Reactiv)
[2024-03-04 12:26] LABS: APPEARANCE,URINE CLEAR (CLEAR); BILIRUBIN,URINE 1+ (NEGATIVE); BLOOD, URINE NEGATIVE (NEGATIVE); COLOR,URINE YELLOW (YELLOW); LEUKOCYTE ESTERASE ,URINE TRACE (NEGATIVE); NITRITE, URINE POSITIVE (NEGATIVE); PROTEIN,URINE NEGATIVE (NEGATIVE); UGLUCOSE NEGATIVE (NEGATIVE)
[2024-03-04 12:45] LABS: ICTOTEST NEGATIVE (NEGATIVE)
[2024-03-04 12:46] LABS: BACTERIA,URINE FEW /HPF (None Seen); MUCUS,URINE None Seen /LPF (None Seen); RBC,URINE 0-5 /HPF (0-5); SQUAMOUS EPITHELIAL CELL,UR 0-3 (FEW) /LPF (0-3 (FEW)); TRICHOMONAS,URINE None Seen /HPF (None Seen); WBC,URINE 0-5 /HPF (0-5); WHITE BLOOD CELL CASTS,URINE None Seen /LPF (None Seen); YEAST,URINE None Seen /HPF (None Seen)
[2024-03-04] MEDS: PENICILLIN G BENZATHINE L-A 1.2 MU/2 ML SYR IM ONE (14:00)
[2024-03-04] MEDS ORDERED: CEPH-588 PO (14:07)
[2024-03-04 14:41] VITALS: BP 143/60; PULSE 68; RESP 20; TEMP 97.2; O2SAT 99
== END 2024-03-04 14:42 | disposition home or self-care (01) ==
LOC: MED 10:37
DX: A53.9 Syphilis, unspecified (principal); L03.115 Cellulitis of right lower limb; F15.90 Other stimulant use, unspecified, uncomplicated; F11.90 Opioid use, unspecified, uncomplicated; Z98.890 Other specified postprocedural states; Z79.899 Other long term (current) drug therapy
CPT/HCPCS: 81001; 81025; 86592; 86703; 87491; 96372; 99283; J0561

== ENCOUNTER 2024-03-15 12:09 | Emergency (ER) | payer MEDICAID ==
[~2024-03-15] VITALS: Ht 157.5 cm; Wt 69.5 kg
[~2024-03-15 12:09] MED LIST changes: -ACET-10509 PO; +ACET500T99 PO
[2024-03-15 12:26] VITALS: BP 110/45; PULSE 86; RESP 19; TEMP 97.7; O2SAT 97
[2024-03-15] MEDS ORDERED: OFLOS RIGHT EYE (12:50)
[2024-03-15] MEDS: PENICILLIN G BENZATHINE L-A 1.2 MU/2 ML SYR IM ONE (14:10)
[2024-03-15 14:50] LABS: HIV RAPID SCREEN NON-REACTIVE (NON REACTIV)
[2024-03-15 15:05] LABS: RAPID PLASMA REAGIN REACTIVE (Non Reactiv)
== END 2024-03-15 14:18 | disposition home or self-care (01) ==
LOC: MED 12:09
DX: H10.9 Unspecified conjunctivitis (principal); H61.23 Impacted cerumen, bilateral; L02.413 Cutaneous abscess of right upper limb; Z11.3 Encounter for screening for infections with a predominantly sexual mode of transmission; F17.210 Nicotine dependence, cigarettes, uncomplicated; Z71.6 Tobacco abuse counseling; F19.90 Other psychoactive substance use, unspecified, uncomplicated; Z79.899 Other long term (current) drug therapy
CPT/HCPCS: 81025; 86592; 87491; 96372; 99283; J0561